=== PATIENT | female | born 1935 | race Caucasian/White ===

== ENCOUNTER 2016-10-08 09:26 | Outpatient (CLI) | payer MEDICARE ==
[2016-10-08 12:45] LABS: ALT (SGPT) 10 U/L (0-55); AST (SGOT) 19 U/L (5-34); Alkaline Phosphatase 48 U/L (40-150); Anion Gap 14 mmol/L (10-20); BUN (Urea Nitrogen) 30 mg/dL (9.8-20.1); Bilirubin, Direct 0.2 mg/dL (0.1-0.3); Bilirubin, Total 0.3 mg/dL (0.2-1.2); Calc. Creatinine Clearance 0 mL/min (70-130); Calcium 9.5 mg/dL (7.8-10.44); Carbon Dioxide 25 mmol/L (23-31); Chloride 107 mmol/L (98-107); Estimated GFR-MDRD 39; LDL Cholesterol, Calculated 103 mg/dL; Protein, Total 6.5 g/dL (5.8-8.1)
[2016-10-08 13:34] LABS: #Basophils 0.1 thou/uL (0.0-0.2); #Eosinphils 0.3 thou/uL (0.0-0.7); #Lymphocytes 1.7 thou/uL (1.20-3.40); #Monocytes 0.4 thou/uL (0.11-0.59); #Neutrophils 2.8 thou/uL (1.40-6.50); %Basophils 1.2 % (0.0-1.0); %Eosinophils 5.9 % (0.0-10.0); %Lymphocytes 32.7 % (21.0-51.0); %Monocytes 6.7 % (0.0-10.0); Hematocrit 32.1 % (36.0-47.0); Mean Platelet Volume 5.8 fL (7.4-10.4); Red Blood Cell (RBC) Count 3.64 mill/uL (4.20-5.40); White Blood Cell (WBC) Count 5.2 thou/uL (4.8-10.8)
[2016-10-08 13:35] LABS: Anisocytosis SLIGHT = 6-15 cells (100X) (0-5/hpf); Hypochromia SLIGHT = 6-15 cells (100X) (0-5/hpf); Target Cells MODERATE= 6-15 cells (100X) (0-1/hpf)
== END 2016-10-08 09:27 | disposition home or self-care (01) ==
LOC: NAVSJIPCSP 09:26
PROVIDERS: ATTEND Family Medicine
DX: E78.00 Pure hypercholesterolemia, unspecified (principal); I12.9 Hypertensive chronic kidney disease with stage 1 through stage 4 chronic kidney disease, or unspecified chronic kidney disease; N18.3 Chronic kidney disease, stage 3 (moderate); E11.65 Type 2 diabetes mellitus with hyperglycemia; E03.9 Hypothyroidism, unspecified
CPT/HCPCS: 36415; 80048; 80061; 80076; 83036; 84443; 85025

== ENCOUNTER 2017-03-09 10:00 | Outpatient (CLI) | payer MEDICARE ==
[2017-03-09 14:07] LABS: ALT (SGPT) 10 U/L (8-55); AST (SGOT) 19 U/L (5-34); Albumin 3.5 g/dL (3.4-4.8); Alkaline Phosphatase 44 U/L (40-150); Anion Gap 14 mmol/L (10-20); BUN (Urea Nitrogen) 45 mg/dL (9.8-20.1); Bilirubin, Direct 0.2 mg/dL (0.1-0.3); Bilirubin, Total 0.3 mg/dL (0.2-1.2); Calc. Creatinine Clearance 0 mL/min (70-130); Calcium 9.3 mg/dL (7.8-10.44); Carbon Dioxide 24 mmol/L (23-31); Cardiac Risk 3.6 (Less than 4.5); Chloride 108 mmol/L (98-107); Cholesterol 170 mg/dl (< 200 Desired); Estimated GFR-MDRD 34; Glucose 114 mg/dL (83-110); HDL Cholesterol 47 mg/dL (>60 Neg Risk); LDL Cholesterol, Calculated 106 mg/dL; Potassium 4.1 mmol/L (3.5-5.1); Protein, Total 5.8 g/dL (6.0-8.3); Sodium 142 mmol/L (136-145); Triglycerides 84 mg/dL (Less than 150)
[2017-03-09 14:34] LABS: Hemoglobin A1c 6.6 % (4.0-6.0)
[2017-03-09 14:44] LABS: #Basophils 0.1 thou/uL (0.0-0.2); #Eosinphils 0.2 thou/uL (0.0-0.7); #Lymphocytes 1.4 thou/uL (1.20-3.40); #Monocytes 0.5 thou/uL (0.11-0.59); #Neutrophils 2.9 thou/uL (1.40-6.50); %Basophils 1.4 % (0.0-1.0); %Eosinophils 4.1 % (0.0-10.0); %Lymphocytes 27.3 % (21.0-51.0); %Monocytes 9.6 % (0.0-10.0); %Neutrophils 57.7 % (42.0-75.0); Hemoglobin 9.2 g/dL (12.0-16.0); Mean Corpuscular HGB CONC 28.7 g/dL (32.0-36.0); Mean Corpuscular Hemoglobin 24.8 pg (27.0-31.0); Mean Corpuscular Volume 86.3 fl (81.0-99.0); Mean Platelet Volume 5.5 fL (7.4-10.4); Platelet Count 220 thou/uL (130-400); RBC Distribution Width 18.1 % (11.5-14.5)
[2017-03-09 14:45] LABS: Anisocytosis SLIGHT = 6-15 cells (100X) (0-5/hpf); Hypochromia SLIGHT = 6-15 cells (100X) (0-5/hpf); MDiff Complete? YES; PLT Morphology Comment Appears Adequate; Poikilocytosis SLIGHT = 6-15 cells (100X) (0-5/hpf); Target Cells MODERATE= 6-15 cells (100X) (0-1/hpf)
== END 2017-03-09 10:01 | disposition home or self-care (01) ==
LOC: NAVSJIPCSP 10:00
PROVIDERS: ATTEND Family Medicine
DX: E78.00 Pure hypercholesterolemia, unspecified (principal); I12.9 Hypertensive chronic kidney disease with stage 1 through stage 4 chronic kidney disease, or unspecified chronic kidney disease; N18.3 Chronic kidney disease, stage 3 (moderate); E11.65 Type 2 diabetes mellitus with hyperglycemia; R63.4 Abnormal weight loss; E03.9 Hypothyroidism, unspecified; S32.009A Unspecified fracture of unspecified lumbar vertebra, initial encounter for closed fracture; S22.009A Unspecified fracture of unspecified thoracic vertebra, initial encounter for closed fracture; J30.9 Allergic rhinitis, unspecified; Z79.899 Other long term (current) drug therapy
CPT/HCPCS: 36415; 80048; 80061; 80076; 83036; 84443; 85025

== ENCOUNTER 2017-11-11 13:43 | Emergency (ER) | payer MEDICARE ==
--- NOTE | 2017-11-11 15:08 | RAD ---
LEFT HAND THREE VIEWS: History: Fall, left hand pain. FINDINGS/IMPRESSION: There is a questionable fracture involving the head/neck of the proximal phalanx of the ring finger/f ourth digit. Clinical correlation is recommended. POS: RIGO
--- NOTE | 2017-11-11 15:20 | RAD ---
RIGHT KNEE FOUR VIEWS: History: Injury, right knee pain. FINDINGS/IMPRESSION: There are post op changes distal right femoral fracture repair with metallic hardware in place. No ac [place] fracture or dislocation is seen. There is a healed fracture of the distal femur. POS: C
== END 2017-11-11 15:05 | disposition home or self-care (01) ==
LOC: NAV ERS 13:43
DX: S60.222A Contusion of left hand, initial encounter (principal); S60.221A Contusion of right hand, initial encounter; S50.12XA Contusion of left forearm, initial encounter; S80.01XA Contusion of right knee, initial encounter; E11.9 Type 2 diabetes mellitus without complications; E78.5 Hyperlipidemia, unspecified; I10 Essential (primary) hypertension; Z79.899 Other long term (current) drug therapy; Z79.82 Long term (current) use of aspirin; W18.30XA Fall on same level, unspecified, initial encounter; Y92.89 Other specified places as the place of occurrence of the external cause

== ENCOUNTER 2017-12-01 09:57 | Emergency (ER) | payer MEDICARE ==
[2017-12-01 10:43] LABS: INR-International Normal Ratio 1.2; Prothrombin Time 15.4 SEC (12.0-14.7)
[2017-12-01 10:44] LABS: PTT 34.4 SEC (22.9-36.1)
[2017-12-01] MEDS ORDERED: Furosemide 40 MG/4 ML VIAL ONE ×2 (10:45→13:00)
[2017-12-01 10:54] LABS: ALT (SGPT) 14 U/L (8-55); AST (SGOT) 20 U/L (5-34); Albumin 3.1 g/dL (3.4-4.8); Alkaline Phosphatase 55 U/L (40-150); Anion Gap 16 mmol/L (10-20); BUN (Urea Nitrogen) 72 mg/dL (9.8-20.1); Bilirubin, Total 0.6 mg/dL (0.2-1.2); Calc. Creatinine Clearance 0 mL/min (70-130); Calcium 9.4 mg/dL (7.8-10.44); Carbon Dioxide 23 mmol/L (23-31); Chloride 106 mmol/L (98-107); Estimated GFR-MDRD 17; Globulin 3.1 g/dL (2.4-3.5); Glucose 183 mg/dL (83-110); Potassium 4.9 mmol/L (3.5-5.1); Protein, Total 6.2 g/dL (6.0-8.3); Sodium 140 mmol/L (136-145)
[2017-12-01 10:56] LABS: CKMB 1.8 ng/mL (0-6.6); Troponin I 0.017 ng/mL (< 0.028)
--- NOTE | 2017-12-01 10:57 | RAD ---
RADIOGRAPH OF CHEST FRONTAL VIEW: Date: 12/01/17 COMPARISON: 12/01/13. INDICATION: Dyspnea. FINDINGS: There is enlargement of the cardiac silhouette. Pulmonary vascular congestion. Right pleural effusion present. There is chronic deformity of the left shoulder. Leads overlie chest, limiting detail. IMPRESSION: 1. Evidence of decompensated CHF. 2. Right basilar opacity is present, indicating pleural fluid with adjacent atelectasis, edema and/o r pneumonia. Recommend follow-up to resolution. POS: MAXIME
--- NOTE | 2017-12-01 10:59 | RAD ---
LEFT HAND THREE VIEWS: HISTORY: Trauma. Pain and edema left hand. COMPARISON: Left hand films from 11/11/2017. FINDINGS: The comparison exam questioned a fracture of the distal aspect of the proximal phalanx, fourth finger . There is evidence of soft tissue edema involving the hand and fingers. The carpals appear normally a ligned. The metatarsals and phalanges appear intact. No evidence of fracture identified. There is mild diffuse osteopenia. Mild degenerative changes in the IP joints. IMPRESSION: Evidence of soft tissue edema. No acute osseous abnormality identified. POS: MAXIME
[2017-12-01 11:23] LABS: #Basophils 0.1 thou/uL (0.0-0.2); #Eosinphils 0.1 thou/uL (0.0-0.7); #Lymphocytes 1.3 thou/uL (1.20-3.40); #Monocytes 0.5 thou/uL (0.11-0.59); #Neutrophils 3.4 thou/uL (1.40-6.50); %Basophils 1.2 % (0.0-1.0); %Eosinophils 2.5 % (0.0-10.0); %Lymphocytes 24.1 % (21.0-51.0); %Neutrophils 63.2 % (42.0-75.0); Hemoglobin 8.7 g/dL (12.0-16.0); Mean Corpuscular HGB CONC 28.5 g/dL (32.0-36.0); Mean Corpuscular Hemoglobin 22.8 pg (27.0-31.0); Mean Platelet Volume 8.6 fL (7.4-10.4); Platelet Count 280 thou/uL (130-400); RBC Distribution Width 18.5 % (11.5-14.5); Red Blood Cell (RBC) Count 3.81 mill/uL (4.20-5.40); White Blood Cell (WBC) Count 5.3 thou/uL (4.8-10.8)
[2017-12-01 11:24] LABS: Anisocytosis SLIGHT = 6-15 cells (100X) (0-5/hpf); MDiff Complete? YES; Polychromasia SLIGHT = 2-3 cells (100X) (0-2/hpf)
[2017-12-01 12:16] LABS: Bilirubin Small (Negative); Blood, Urine Moderate (Negative); Clarity Slightly Cloudy (Clear); Glucose, Urine (Dipstick) 100 mg/dL (Negative); Leukocyte Negative (Negative); Nitrite Negative (Negative); Protein, Urine (Dipstick) > or equal to 300 mg/dL (Neg-Trace); Urobilinogen 0.2 mg/dL (0.2-1.0)
[2017-12-01 12:25] LABS: Bacteria/HPF 1+ HPF (None Seen); Squamous Epithelial 0-3 HPF (0-3); WBC/HPF None Seen HPF (0-3)
[2017-12-01 12:26] LABS: Other Casts/LPF 0-3 FINELY GRAN LPF (0-3 Hyaline); Other Microscopic Description NO
[2017-12-01] MEDS ORDERED: Sodium Chloride 0.9% 0 ML ONE (12:47)
[2017-12-01] MEDS ORDERED: cefTRIAXone\\ROCEPHIN 1 GM VIAL ONE (12:47)
[2017-12-01 13:07] LABS: Microcytosis SLIGHT = 6-15 cells (100X) (0-5/hpf)
== END 2017-12-01 16:30 | disposition short-term general hospital (02) ==
LOC: NAV ERS 09:57
DX: I11.0 Hypertensive heart disease with heart failure (principal); I50.9 Heart failure, unspecified; I48.91 Unspecified atrial fibrillation; D64.9 Anemia, unspecified; E11.9 Type 2 diabetes mellitus without complications; E03.9 Hypothyroidism, unspecified; E78.5 Hyperlipidemia, unspecified; Z79.82 Long term (current) use of aspirin; Z79.899 Other long term (current) drug therapy
CPT/HCPCS: 36415; 51702; 71045; 80053; 81003; 81015; 82553; 83880; 84484; 85025; 85610; 85730; 93005; 94760; 96374; 96375; 96376; J0696; J1940; J7050